=== PATIENT | female | born 1950 | race Caucasian/White ===

== ENCOUNTER 2017-12-28 08:30 | Inpatient (IN) | payer OTHER ==
[~2017-12-28] VITALS: Ht 167.6 cm; Wt 90.7 kg
[2017-12-28] MEDS ORDERED: LIPITOR20 MG PO (09:40)
[2017-12-28] MEDS ORDERED: GLIMEPIRIDE1 MG PO (09:40)
[2017-12-28] MEDS ORDERED: OMEPRAZOLE20 MG PO (09:41)
[2017-12-28] MEDS ORDERED: NIFEDIPINE ER30 M1 PO (09:41)
== END 2018-01-06 16:16 | disposition home or self-care (01) | DRG 331 ==
LOC: SURG 01-03 05:25 → O/R 01-03 05:25 → SURH 01-03 08:30 → SURG 01-03 13:30 → SURH 01-03 15:30 → SURG 01-06 16:16
PROVIDERS: Colon & Rectal Surgery
PROC: 0DJD8ZZ Inspection of Lower Intestinal Tract, Via Natural or Artificial Opening Endoscopic (ICD-10-PCS; 2018-01-03)
PROC: 0DTE4ZZ Resection of Large Intestine, Percutaneous Endoscopic Approach (ICD-10-PCS; principal; 2018-01-03 15:30)
DX: K57.32 Diverticulitis of large intestine without perforation or abscess without bleeding (principal); I10 Essential (primary) hypertension; E11.9 Type 2 diabetes mellitus without complications

== ENCOUNTER 2021-04-17 06:00 | Day surgery (SDC) | payer OTHER ==
[~2021-04-17 06:00] MED LIST: GLIMEPIRIDE1 MG PO; LIPITOR20 MG PO; NIFEDIPINE ER30 M1 PO; OMEPRAZOLE20 MG PO
== END 2021-04-17 11:10 | disposition home or self-care (01) ==
LOC: AMB-ENDOS 06:00
PROVIDERS: ATTEND Colon & Rectal Surgery
DX: K57.32 Diverticulitis of large intestine without perforation or abscess without bleeding (principal); K64.0 First degree hemorrhoids; Z20.822 Contact with and (suspected) exposure to COVID-19